=== PATIENT | male | born 1990 | race Caucasian/White ===

== ENCOUNTER 2016-11-15 19:40 | Emergency (ER) | payer OTHER ==
[2016-11-15 20:31] VITALS: BP 133/86
[2016-11-15] MEDS ORDERED: SILVER SULFADIAZINE 400GM TUBE TP ONE (21:04)
[2016-11-15] MEDS: HYDROcodone /APAP 5/325 1 EACH TABLET PO ONE (21:15)
[2016-11-15] MEDS: SILVER SULFADIAZINE 400GM TUBE TP ONE (21:15)
== END 2016-11-15 21:12 | disposition home or self-care (01) ==
LOC: ED 19:40
DX: T23.201A Burn of second degree of right hand, unspecified site, initial encounter (principal); T22.211A Burn of second degree of right forearm, initial encounter; X17.XXXA Contact with hot engines, machinery and tools, initial encounter; Y93.G2 Activity, grilling and smoking food; Y99.9 Unspecified external cause status
CPT/HCPCS: 99283; A9270-GY